=== PATIENT | female | born 1995 | race Caucasian/White ===

== ENCOUNTER 2023-01-01 07:51 | Emergency (ER) | payer MEDICAID ==
[~2023-01-01] VITALS: Ht 172.7 cm; Wt 72.6 kg
[2023-01-01] MEDS ORDERED: LIDOCAINE HCL/PF 1% 10 MG/ML 5ML VIAL INFIL ONE (08:15)
[2023-01-01 08:49] LABS: BASOPHILS % 0.7 % (0.0-2.0); EOSINOPHILS % 0.7 % (0.0-5.0); HEMATOCRIT. 41.4 % (36.0-48.0); HEMOGLOBIN. 14.5 g/dL (12.0-16.0); LYMPHOCYTES % 19.9 % (20.0-50.0); MEAN CORPUSCULAR HEMOGLOBIN 31.2 pg (28.0-32.0); MEAN CORPUSCULAR VOLUME 89.4 fL (81.0-99.0); MEAN PLATELET VOLUME 7.5 fl (7.4-10.4); MONOCYTES % 10.7 % (2.0-8.0); PLATELET 354 x1000/uL (130-400); RED BLOOD CELL COUNT 4.63 mill/uL (4.2-5.4); RED CELL DISTRIBUTION WIDTH 12.8 % (11.6-14.6)
[2023-01-01 09:00] LABS: CHLORIDE 112 mEq/L (98-107)
[2023-01-01 09:08] LABS: ETHANOL BLOOD 91 mg/dL (-10)
[2023-01-01] MEDS ORDERED: LORAZEPAM 2MG/ML CPJ IM STA (10:50)
[2023-01-01] MEDS ORDERED: OLANZAPINE 10 MG/VIAL IM ONE (11:00)
[2023-01-01] MEDS: SERTRALINE HCL 50MG TABLET PO SCH (12:16)
[2023-01-01 15:08] LABS: CLARITY URINE CLEAR (CLEAR); COLOR URINE YELLOW (YELLOW); KETONES URINE 2+ (NEGATIVE); LEUKOCYTE ESTERASE URINE TRACE (NEGATIVE); NITRITE URINE NEGATIVE (NEGATIVE); OCCULT BLOOD URINE NEGATIVE (NEGATIVE); PH URINE 5.5 (4.5-8.0); PROTEIN URINE NEGATIVE (NEGATIVE); UROBILINOGEN URINE 0.2 E.U./dL (0.2-1.0)
[2023-01-01 15:24] LABS: *AMPHETAMINES SCREEN URINE NEGATIVE (NEGATIVE); *BARBITURATES SCREEN URINE NEGATIVE (NEGATIVE); *BENZODIAZEPINES SCREEN URINE NEGATIVE (NEGATIVE); *COCAINE SCREEN URINE NEGATIVE (NEGATIVE); METHADONE URINE SCREEN NEGATIVE (NEGATIVE); OPIATES URINE SCREEN NEGATIVE (NEGATIVE); PHENCYCLIDINE URINE SCREEN NEGATIVE (NEGATIVE)
[2023-01-01 16:05] LABS: CANNABINOID URINE SCREEN PRESUMTIVE POSITIVE (NEGATIVE)
[2023-01-02] MEDS: SERTRALINE HCL 50MG TABLET PO SCH (09:43)
[2023-01-02 15:10] VITALS: BP 124/68
== END 2023-01-02 15:45 ==
LOC: ER 08:48
DX: S51.812A Laceration without foreign body of left forearm, initial encounter (principal); R45.851 Suicidal ideations; F32.A Depression, unspecified; Z20.822 Contact with and (suspected) exposure to COVID-19; X78.8XXA Intentional self-harm by other sharp object, initial encounter; Y93.89 Activity, other specified; Y92.89 Other specified places as the place of occurrence of the external cause; Y99.8 Other external cause status
CPT/HCPCS: 12002; 36415; 80053; 80305; 80320; 81003; 81025; 85025; 87426; 96372; 99285; C9803; J2060; J3490; Z7610; G0480

== ENCOUNTER 2023-01-15 13:14 | Emergency (ER) | payer MEDICAID ==
[~2023-01-15] VITALS: Ht 172.7 cm; Wt 72.0 kg
[2023-01-15 13:29] VITALS: BP 106/58; PULSE 70; RESP 16; TEMP 98.8; O2SAT 100
== END 2023-01-15 14:10 | disposition home or self-care (01) ==
LOC: ER 13:14
DX: S51.812D Laceration without foreign body of left forearm, subsequent encounter (principal); X58.XXXD Exposure to other specified factors, subsequent encounter; F12.10 Cannabis abuse, uncomplicated
CPT/HCPCS: 99281; Z7610